=== PATIENT | male | born 1955 | race Native Hawaiian/Other Pacific Islander ===

== ENCOUNTER 2020-08-27 10:40 | Inpatient (IN) | payer MEDICARE, MEDICAID ==
[~2020-08-27] VITALS: Ht 172.7 cm; Wt 64.4 kg
--- NOTE | 2020-08-27 11:07 | NUR ---
patient came in to the er, sent by PMD due to K+ 6.5. On room air, breathing evenyl and unlabored. Connected to the monitor and pulse ox. kept comfortable, will continue to monitor accordingly.
[2020-08-27 11:17] LABS: BASOPHILS # (AUTO) 0.1 /CMM (0.0-0.2); BASOPHILS % (AUTO) 1.2 % (0.0-2.0); EOSINOPHILS % (AUTO) 2.5 % (0.0-6.0); HEMATOCRIT 37 % (39-51); HEMOGLOBIN 12.2 g/dL (13.5-17.5); LYMPHOCYTES # (AUTO) 2.5 /CMM (0.8-4.8); LYMPHOCYTES % (AUTO) 32.5 % (20.0-44.0); MEAN CORPUSCULAR HGB CONC 33 g/dl (31.0-36.0); MEAN CORPUSCULAR VOLUME 94 fL (80-96); MONOCYTES # (AUTO) 0.9 /CMM (0.1-1.30); MONOCYTES % (AUTO) 12.3 % (2.0-12.0); NEUTROPHILS # (AUTO) 3.9 /CMM (1.8-8.9); NEUTROPHILS % (AUTO) 51.5 % (43.0-81.0); PLATELET COUNT (AUTO) 310 /CMM (150-450); RED BLOOD CELL COUNT(AUTO) 3.92 MIL/uL (4.5-6.0); WHITE BLOOD COUNT (AUTO) 7.6 K/uL (4.3-11.0)
[2020-08-27] MEDS ORDERED: SODIUM BICARBONATE SYR 50 MEQ/50 ML DISP.SYRIN ONE (11:17)
[2020-08-27] MEDS ORDERED: CALCIUM CHLORIDE 1,000 MG/10 ML DISP.SYRIN ONE (11:17)
[2020-08-27] MEDS ORDERED: SODIUM BICARBONATE SYR 50 MEQ/50 ML DISP.SYRIN IV ONE (11:30)
[2020-08-27] MEDS ORDERED: CALCIUM CHLORIDE 1,000 MG/10 ML DISP.SYRIN IV ONE (11:30)
--- NOTE | 2020-08-27 11:30 | NUR ---
patient at bedside and checked patient HR 50, per MD to wait for the lab result before giving the medications, patient denies chest pain or discomfort. Per patient her average HR in the morning usually in the 50's. Will continue to monitor accordingly. Addendum: 08/27/20 at 1150 by CASSIUS MD at bedside
[2020-08-27 11:32] LABS: CALCIUM, SERUM 9.4 mg/dL (8.5-10.1); CARBON DIOXIDE 23 mmol/L (21-32); CHLORIDE 107 mmol/L (98-107); CREATININE 1.6 mg/dL (0.6-1.3); GLUCOSE 89 mg/dL (74-106); POTASSIUM 5.7 mmol/L (3.5-5.1); SODIUM SERUM 138 mmol/L (136-145); UREA NITROGEN, BLOOD 46 mg/dL (7-18)
[2020-08-27] MEDS ORDERED: APIX5TAB PO (11:37)
[2020-08-27] MEDS ORDERED: SPIR25TA6 PO (11:37)
[2020-08-27] MEDS ORDERED: AMIO200T5 PO (11:37)
[2020-08-27] MEDS ORDERED: METO25TA4 PO (11:37)
[2020-08-27] MEDS ORDERED: LOSA25TA27 PO (11:37)
[2020-08-27 11:38] LABS: ALANINE AMINOTRANSFERASE 69 U/L (12-78); ALBUMIN 3.8 g/dL (3.4-5.0); ALKALINE PHOSPHATASE 150 U/L (46-116); ASPARTATE AMINOTRANSFERASE 40 U/L (15-37); BILIRUBIN,DIRECT 0.1 mg/dL (0.0-0.2); BILIRUBIN,TOTAL 0.2 mg/dL (0.2-1.0); TOTAL PROTEIN, SERUM 8.5 g/dL (6.4-8.2)
--- NOTE | 2020-08-27 11:50 | NUR ---
CALLED DR. FARLEY [phone] CALL [phone] PAGED.
[2020-08-27 11:53] LABS: MAGNESIUM 2.3 mg/dL (1.8-2.4)
[2020-08-27] MEDS ORDERED: SODIUM POLYSTYRENE SULF. PWD 15 GM UDC PO ONE ×2 (12:00→12:30)
[2020-08-27] MEDS ORDERED: SODIUM POLYSTYRENE SULFONATE 15 G/60 ML BOTTLE ONE (12:19)
[2020-08-27] MEDS ORDERED: SODIUM POLYSTYRENE SULFONATE 15 G/60 ML BOTTLE PO ONE (12:30)
[2020-08-27] MEDS ORDERED: IV NS 0.9% 1,000 ML BAG IV ONE (12:30)
--- NOTE | 2020-08-27 15:10 | NUR ---
COVID SPECIMEN COLLECTED AND SENT TO LAB.
--- NOTE | 2020-08-27 16:32 | NUR ---
CALLED HOUSE SUP WAITING FOR BED.
--- NOTE | 2020-08-27 16:43 | NUR ---
GOT BED 320-2
--- NOTE | 2020-08-27 16:47 | NUR ---
report givento Conner SOLORZANO for fabiola
--- NOTE | 2020-08-27 16:57 | NUR ---
Wheeled patient via gurney accompanied by RN and emt in no distress, RN at bedside to assume care.
--- NOTE | 2020-08-27 17:00 | NUR ---
PAPER BAG INSPECTOR NOTES RECEIVED PT FROM E.R. STAFF [facility]IA [facility], PT IS ALERT, AWAKE, ORIENTED, DENIES PAIN, BREATHING PATTERN NORMAL, ON ROOM AIR, ASSISTED TO BED, PT ABLE TO AMBULATE TO BED, STEADY GAIT, WITH SLIGHT LIMP DUE TO PREVIOUS SURGERY AT LEFT ANKLE, MADE COMFORTABLE, ROOM SET UP ORIENTATION PROVIDED TO PT, VERBALIZED UNDERSTANDING, VITALS TAKEN AND RECORDED, AWAIITNG ADMISSION ORDERS FROM .
[2020-08-27 18:00] VITALS: BP 148/56
[2020-08-27 18:27] LABS: CALCIUM, SERUM 8.6 mg/dL (8.5-10.1); CREATININE 1.4 mg/dL (0.6-1.3); POTASSIUM 5.1 mmol/L (3.5-5.1)
--- NOTE | 2020-08-27 18:38 | NUR ---
SENIOR ANIMATOR NOTES PT IN BED, NO COMPLAINT, DINNER SERVED, SEEN AND EXAMINED BY DR. MAURER, ADMITTING ORDERS RECEIVED, CALL LIGHT PLACED WITHIN REACH.
[2020-08-27] MEDS ORDERED: MAG HYDROX/AL HYDROX/SIMETH 30 ML UDC PO PRN (19:00)
[2020-08-27] MEDS ORDERED: ONDANSETRON HCL/PF 4 MG/2 ML VIAL IVP PRN (19:00)
[2020-08-27] MEDS ORDERED: ZOLPIDEM TARTRATE 5 MG TABLET PO PRN (19:00)
[2020-08-27] MEDS ORDERED: ACETAMINOPHEN 325 MG TABLET PO PRN (19:00)
[2020-08-27] MEDS ORDERED: Z GUARD REMEDY 2 OZ OINT TP PRN (19:00)
[2020-08-27] MEDS ORDERED: HYDROCODONE/APAP 5/325MG TABLET PO PRN (19:00)
--- NOTE | 2020-08-27 19:00 | NUR ---
RECEIVED IN BED ALERT AND ORIENTATED X4 CALM AND COOPERATIVE NO C/O CALL LIGHT WITHIN HIS REACH
[2020-08-27] MEDS: IV NS 0.9% 1,000 ML IV PRN (19:44)
[2020-08-27] MEDS: APIXABAN 5 MG TABLET PO SCH (19:51)
[2020-08-27 20:00] VITALS: BP_SYST 123; BP_SYST 125; BP_DIAS 55
[2020-08-27 22:23] VITALS: BP_SYST 123
[2020-08-28] VITALS (7 sets, daily range): BP systolic 122–141; BP diastolic 57–80
--- NOTE | 2020-08-28 03:52 | NUR ---
ENDING NTES: SLEPT THRU THE NIGHT. NO C/O OFFERED REMAINS IN SINUS JASWINDER 38 -48 NO C/O THIS 12 HOURS. COMFORTABLE CALL LIGHT WITHIN HIS REACH
[2020-08-28 06:04] LABS: BASOPHILS # (AUTO) 0.1 /CMM (0.0-0.2); BASOPHILS % (AUTO) 0.8 % (0.0-2.0); EOSINOPHILS % (AUTO) 4.2 % (0.0-6.0); HEMATOCRIT 35 % (39-51); HEMOGLOBIN 11.9 g/dL (13.5-17.5); LYMPHOCYTES % (AUTO) 41.4 % (20.0-44.0); MEAN CORPUSCULAR HGB CONC 34 g/dl (31.0-36.0); MEAN CORPUSCULAR VOLUME 94 fL (80-96); MONOCYTES # (AUTO) 0.9 /CMM (0.1-1.30); MONOCYTES % (AUTO) 11.9 % (2.0-12.0); NEUTROPHILS % (AUTO) 41.7 % (43.0-81.0); PLATELET COUNT (AUTO) 286 /CMM (150-450); RED BLOOD CELL COUNT(AUTO) 3.75 MIL/uL (4.5-6.0); WHITE BLOOD COUNT (AUTO) 7.2 K/uL (4.3-11.0)
--- NOTE | 2020-08-28 07:23 | NUR ---
DELIMER OPENING NOTES PT RECEIVED AWAKE IN BED IN NO ACUTE SIGNS OF DISTRESS. A/O X4. ABLE TO MAKE NEEDS KNOWN, DENIES PAIN OR ANY DISCOMFORTS AT THIS TIME. ON TELE MONITORING WITH CURRENT READING OF SB WITH HR OF 44, NO C/O CARDIAC DISTRESS VOICED. ON ROOM AIR, BREATHING EVEN AND UNLABORED. IV ACCESS ON RAC G#20 INTACT AND PATENT WITH IVF OF NS @ 75ML/HR INFUSING WELL, NO S//S OF INFILTRATION AT SITE NOTED. SAFETY PRECAUTIONS IN PLACE: BED IN LOWEST LOCKED POSITION WITH SR UP X2. CALL LIGHT W/I REACH. WILL CONTINUE TO MONITOR PT ACCORDINGLY
[2020-08-28 07:25] LABS: CALCIUM, SERUM 9.3 mg/dL (8.5-10.1); CREATININE 1.3 mg/dL (0.6-1.3); MAGNESIUM 2.3 mg/dL (1.8-2.4); PHOSPHORUS 3.5 mg/dL (2.5-4.9); POTASSIUM 5.7 mmol/L (3.5-5.1)
[2020-08-28] MEDS: IV NS 0.9% 1,000 ML IV PRN (09:27)
[2020-08-28] MEDS: AMLODIPINE BESYLATE 10 MG TABLET PO SCH (09:28)
[2020-08-28] MEDS: APIXABAN 5 MG TABLET PO SCH ×2 (09:29→17:15)
[2020-08-28] MEDS ORDERED: SODIUM POLYSTYRENE SULFONATE 15 G/60 ML BOTTLE PO ONE (12:30)
[2020-08-28 12:31] LABS: BILIRUBIN,URINE NEGATIVE (NEGATIVE); COLOR,URINE DARK YELLOW (YELLOW); LEUKOCYTE ESTERASE ,URINE TRACE (NEGATIVE); NITRITE, URINE NEGATIVE (NEGATIVE); PH,URINE 5.5 (5.0-8.0); PROTEIN,URINE NEGATIVE (NEGATIVE); UGLUCOSE NEGATIVE (NEGATIVE); UROBILINOGEN,URINE 0.2 EU/dL (0.2)
[2020-08-28 12:37] LABS: CREATININE, URINE 164.5 MG/DL (30.0-125.0); URINE TOTAL PROTEIN 34.3 mg/dL (0-11.9)
[2020-08-28 12:48] LABS: BACTERIA,URINE Few /HPF (None Seen); RBC,URINE 0-2 /HPF (0-2); SQUAMOUS EPITHELIAL CELL,UR Rare /HPF (None Seen); URINE AMORPHOUS URATE Many /HPF (None Seen)
[2020-08-28 12:58] LABS: URIC ACID CRYSTALS,URINE Few /HPF (None Seen)
--- NOTE | 2020-08-28 13:19 | NUR ---
RN NOTES PATIENT NOTED WITH HIGH K 5.7 TODAY. AISSATOU MAURER MADE AWARE AND ORDERED TO GIVE KAYEXALATE 30 GMS PO. ORDERED CARRIED OUT. WILL CONTINUE TO MONITOR
[2020-08-28 13:26] LABS: EOSINOPHIL,URINE None Seen
--- NOTE | 2020-08-28 18:55 | NUR ---
KNITTED GOODS SHAPER CLOSING NOTES PT IN BED WATCHING TV AT THIS TIME. A/O X4. ABLE TO MAKE NEEDS KNOWN. PLEASANT AND COMPLIANT. ON ROOM AIR, BREATHING EVEN AND UNLABORED, NO ACUTE RESPIRATORY DISTRESS NOTED. ON TELE CARDIAC MONITORING WITH CURRENT READING OF SB, HR OF 44, NO C/O CARDIAC DISTRESS VOICED DURING THE DAY. IV ACCESS ON RAC G#20 INTACT AND PATENT, IVF OF NS @ 125ML/HR INFUSING WELL, NO S//S OF INFILTRATION AT SITE NOTED. ALL NEEDS AND CARE ATTENDED WELL. SAFETY PRECAUTIONS IN PLACE: BED IN LOWEST LOCKED POSITION WITH SR UP X2. CALL LIGHT W/I REACH. WILL ENDORSE OMAR TO CLIPPING MARKER NURSE.
[2020-08-29 00:21] VITALS: BP 147/92
[2020-08-29] MEDS: IV NS 0.9% 1,000 ML IV PRN (00:26)
[2020-08-29 04:24] VITALS: BP 145/63
[2020-08-29 06:40] LABS: BASOPHILS # (AUTO) 0.1 /CMM (0.0-0.2); BASOPHILS % (AUTO) 0.8 % (0.0-2.0); EOSINOPHILS % (AUTO) 3.4 % (0.0-6.0); HEMATOCRIT 36 % (39-51); HEMOGLOBIN 11.7 g/dL (13.5-17.5); LYMPHOCYTES # (AUTO) 3.1 /CMM (0.8-4.8); LYMPHOCYTES % (AUTO) 39.4 % (20.0-44.0); MEAN CORPUSCULAR HGB CONC 33 g/dl (31.0-36.0); MEAN CORPUSCULAR VOLUME 95 fL (80-96); MONOCYTES % (AUTO) 12.2 % (2.0-12.0); NEUTROPHILS # (AUTO) 3.5 /CMM (1.8-8.9); NEUTROPHILS % (AUTO) 44.2 % (43.0-81.0); PLATELET COUNT (AUTO) 285 /CMM (150-450); RED BLOOD CELL COUNT(AUTO) 3.75 MIL/uL (4.5-6.0); WHITE BLOOD COUNT (AUTO) 7.8 K/uL (4.3-11.0)
[2020-08-29 07:05] LABS: ALBUMIN 3.2 g/dL (3.4-5.0); BILIRUBIN,TOTAL 0.5 mg/dL (0.2-1.0); CALCIUM, SERUM 8.8 mg/dL (8.5-10.1); CREATININE 1.1 mg/dL (0.6-1.3); PHOSPHORUS 2.7 mg/dL (2.5-4.9); POTASSIUM 4.6 mmol/L (3.5-5.1); TOTAL PROTEIN, SERUM 7.3 g/dL (6.4-8.2)
--- NOTE | 2020-08-29 07:16 | NUR ---
HEAD START COORDINATOR OPENING NOTES RECEIVED PT AWAKE IN BED IN NO ACUTE SIGNS OF DISTRESS. A/O X4. ABLE TO MAKE NEEDS KNOWN, DENIES PAIN OR ANY DISCOMFORTS AT THIS TIME. ON ROOM AIR, BREATHING EVEN AND UNLABORED. ON TELE MONITORING WITH CURRENT READING OF SB, HR 49, NO C/O CARDIAC DISTRESS VOICED. IV ACCESS ON RAC G#20 INTACT AND PATENT WITH IVF OF NS @ 125ML/HR INFUSING WELL, NO S/S OF INFILTRATION AT SITE NOTED. SAFETY MEASURES IN PLACE: BED IN LOWEST LOCKED POSITION WITH SR UP X2. CALL LIGHT W/I REACH. WILL CONTINUE TO MONITOR PT ACCORDINGLY
[2020-08-29 08:00] VITALS: BP 139/75
[2020-08-29] MEDS: APIXABAN 5 MG TABLET PO SCH (08:28)
[2020-08-29 08:30] VITALS: BP 139/75
[2020-08-29] MEDS: AMLODIPINE BESYLATE 10 MG TABLET PO SCH (08:30)
[2020-08-29] MEDS ORDERED: AMLO-213 PO (11:37)
--- NOTE | 2020-08-29 14:01 | NUR ---
RN DISCHARGED NOTES PATIENT DISCHARGED HOME IN STABLE CONDITION. A/O X4. ABLE TO MAKE NEEDS KNOWN. V/S TAKEN, STABLE AND RECORDED. ALL BELONGING ACCOUNTED FOR AND SIGNED FORM. IV ACCESS ON RAC G#20 REMOVED, NO BLEEDING NOTED, DRY DRESSING APPLIED AT SITE. NAME ARMBAND REMOVED. PT REFUSED PNA AND FLU VACCINES, STATED THAT HE DOESN'T GET THEM EVER SINCE. HEALTH TEACHINGS/DISCHARGE INSTRUCTIONS GIVEN TO PT AND VERBALIZED UNDERSTANDING. EXIT FOLDER AND PRESCRIPTION FOR [facility] HANDED TO PT. PT LEFT UNIT AMBULATORY AT 1355 ACCOMPANIED BY ME TO [facility]. PT'S FRIEND BILLY WILL DRIVE PT'S HOME. CHARGE NURSE AWARE OF DISCHARGE.
== END 2020-08-29 14:15 | disposition home or self-care (01) | DRG 640 ==
LOC: ER 10:50 → TELE 16:49 → MED 08-29 10:37
PROVIDERS: ADMIT Nurse Practitioner Acute Care; ATTEND Nurse Practitioner Acute Care
DX: E87.5 Hyperkalemia (principal); N17.0 Acute kidney failure with tubular necrosis; D68.59 Other primary thrombophilia; Z87.891 Personal history of nicotine dependence; R00.1 Bradycardia, unspecified; I48.91 Unspecified atrial fibrillation; D64.9 Anemia, unspecified; Z20.822 Contact with and (suspected) exposure to COVID-19; I10 Essential (primary) hypertension; Z79.899 Other long term (current) drug therapy; Z79.01 Long term (current) use of anticoagulants; Y92.9 Unspecified place or not applicable; T44.5X5A Adverse effect of predominantly beta-adrenoreceptor agonists, initial encounter; T44.7X5A Adverse effect of beta-adrenoreceptor antagonists, initial encounter
CPT/HCPCS: 36415; 71045-TC; 76770-TC; 80048-TC; 80053-TC; 80061-TC; 80076-TC; 81001; 82436-TC; 82570-TC; 83735-TC; 84100-TC; 84133-TC; 84155-TC; 84300-TC; 84484-TC; 85025-TC; 87081-TC; 93307-TC; C9803; G0378; J3490; J7030; J7040

== ENCOUNTER 2023-10-03 08:59 | Emergency (ER) | payer BC, OTHER ==
[~2023-10-03] VITALS: Ht 172.7 cm; Wt 61.2 kg
[~2023-10-03 08:59] MED LIST: AMLO-213 PO; APIX5TAB PO
[2023-10-03 09:11] VITALS: BP 108/60; TEMP 98.1; O2SAT 97
== END 2023-10-03 15:58 | disposition home or self-care (01) ==
LOC: ER 09:02
DX: S99.912A Unspecified injury of left ankle, initial encounter (principal); I10 Essential (primary) hypertension; I48.91 Unspecified atrial fibrillation; W13.8XXA Fall from, out of or through other building or structure, initial encounter; Y93.89 Activity, other specified; Y92.89 Other specified places as the place of occurrence of the external cause; Y99.8 Other external cause status
CPT/HCPCS: 73590-TC; 73610-TC; 73700-TC